=== PATIENT | male | born 1985 | race Caucasian/White ===

== ENCOUNTER 2022-03-03 03:35 | Emergency (ER) | payer MEDICAID ==
[~2022-03-03] VITALS: Ht 170.2 cm; Wt 72.7 kg
[2022-03-03 03:36] VITALS: BP 122/70
[2022-03-03] MEDS ORDERED: HYDR-3965 PO (04:22)
== END 2022-03-03 04:51 | disposition home or self-care (01) ==
LOC: ER 03:35
DX: M25.572 Pain in left ankle and joints of left foot (principal); F12.90 Cannabis use, unspecified, uncomplicated; Z88.8 Allergy status to other drugs, medicaments and biological substances
CPT/HCPCS: 73610; 73630; 99284; L4360